=== PATIENT | male | born 1980 | race American Indian/Alaskan Native ===

== ENCOUNTER 2019-06-26 20:35 | Emergency (ER) | payer OTHER ==
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
[2019-06-26 21:35] VITALS: BP 126/87
[2019-06-26] MEDS ORDERED: ULTRAM PO ONE (23:19)
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
== END 2019-06-26 23:58 | disposition home or self-care (01) ==
LOC: ED 20:35
DX: S16.1XXA Strain of muscle, fascia and tendon at neck level, initial encounter (principal); S39.012A Strain of muscle, fascia and tendon of lower back, initial encounter; S46.911A Strain of unspecified muscle, fascia and tendon at shoulder and upper arm level, right arm, initial encounter; F12.10 Cannabis abuse, uncomplicated; V89.0XXA Person injured in unspecified motor-vehicle accident, nontraffic, initial encounter; Y93.89 Activity, other specified; Y92.410 Unspecified street and highway as the place of occurrence of the external cause; Y99.8 Other external cause status